=== PATIENT | male | born 1935 | race Caucasian/White ===

== ENCOUNTER → 2022-06-27 09:57 | Outpatient (CLI) | payer OTHER, SELFPAY ==
--- NOTE | ~2022-06-27 | CT_ITS ---
Noncontrast CT scan of the cervical spine Technique: Multiple contiguous axial [address] images of the cervical spine were obtained and rec onstructed in 2D sagittal and coronal planes on the acquisition scanner. Dose reduction technique was used on this scan by utilizing automated exposure control, adjustment of the mA and/or kV according to patient size. Clinical History: Fracture Findings: There is an anterior wedging compression fracture deformity of T1, with moderate loss of he ight anteriorly. There is associated grade 1 anterolisthesis of C7 over T1, measuring approximately 3 mm. There are additional acute fractures of the bilateral lamina of C7, minimally displaced (series 500 i mages 95-101). There is additional acute, essentially nondisplaced fracture of the left T1 transverse process (series 500 image 110 for example). There is also a fracture, minimally displaced of the pos terior left first rib (series 501 117). There are also fractures of the bilateral C6 lamina, which appear possibly more chronic in nature wit h possible cortication of the fracture margins (series 500 image 91 for example). There is probable mild canal stenosis at the C7-T1 region with focal acute kyphosis. No prevertebral soft tissue swelling. Impression: Moderate compression fracture deformity of T1. Acute, mildly displaced fractures of the bilateral C7 lamina. Mildly displaced fractures of the T1 left transverse process and posterior left first rib. Fractures of bilateral C6 lamina, which may be more chronic in nature. Reviewed, dictated and finalized at [facility]. OF SALES Impression: Moderate compression fracture deformity of T1. Acute, mildly displaced fractures of the bilateral C7 lamina. Mildly displaced fractures of the T1 left transverse process and posterior left first rib. Fractures of bilateral C6 lamina, which may be more chronic in nature.
== END ==
PROVIDERS: PCP Family Medicine Adolescent Medicine; Visit Provider Family Medicine Adolescent Medicine
DX: S22.018A Other fracture of first thoracic vertebra, initial encounter for closed fracture (principal); S12.690A Other displaced fracture of seventh cervical vertebra, initial encounter for closed fracture; X58.XXXA Exposure to other specified factors, initial encounter
CPT/HCPCS: 72125

== ENCOUNTER → 2023-02-27 11:25 | Outpatient (CLI) | payer OTHER, SELFPAY ==
--- NOTE | ~2023-02-27 | XR_ITS ---
XR chest 2V DATE: 02/27/2023 11:45 INDICATION: Persistent cough TECHNIQUE: AP and lateral views COMPARISON: 05/02/2019 2 view chest FINDINGS: Normal heart size. Aortic calcification and unfolding. No hilar or mediastinal enlargement. Bilateral hyperinflation consistent with COPD. No pulmonary infiltrate or consolidation, pleural effu leon or pulmonary vascular congestion or pneumothorax is detected. Osteopenia. Diffuse idiopathic skeletal hyperostosis of the thoracic spine. IMPRESSION: COPD No active cardiopulmonary disease Aortic atherosclerosis Osteopenia Reviewed, dictated and finalized at [facility].
== END ==
PROVIDERS: PCP Family Medicine Adolescent Medicine; Visit Provider Family Medicine Adolescent Medicine
DX: R05.3 Chronic cough (principal); J43.9 Emphysema, unspecified; M85.88 Other specified disorders of bone density and structure, other site; I70.0 Atherosclerosis of aorta
CPT/HCPCS: 71046